=== PATIENT | female | born 1960 | race Caucasian/White ===

== ENCOUNTER 2018-04-30 11:24 | Emergency (ER) | payer MEDICAID ==
[~2018-04-30] VITALS: Ht 167.6 cm; Wt 93.9 kg
[2018-04-30 11:29] VITALS: BP_SYST 112
--- NOTE | 2018-04-30 11:38 | NUR ---
Patient triaged and placed in waiting room. VSS and patient appears in no acute distress at this time. Accompanied by daughter, awaiting available bed, and MD notified of need for MSE.
--- NOTE | 2018-04-30 13:52 | NUR ---
Patient to ER bed 06 to gown for evaluation. Side rails up. Report given to Tha LOYA.
--- NOTE | 2018-04-30 13:53 | NUR ---
ER FREDDY Roahc examining patient.
--- NOTE | 2018-04-30 13:55 | NUR ---
Patient is awake, alert, and oriented x4. She is complaining swollen feet for 3 months. She is complaining of pain 10/10.
[2018-04-30] MEDS ORDERED: HYDROcodone/ACETAMIN 7.5-325 MG TAB PO ONE (14:30)
--- NOTE | 2018-04-30 16:35 | NUR ---
Patient given written and verbal discharge instructions and verbalizes understanding. ER MD discussed with patient the results and treatment provided. Patient in stable condition. ID arm band removed. Rx of motrin, norco given. Patient educated on pain management and to follow up with PMD. Pain Scale 0/10. Opportunity for questions provided and answered. Medication side effect fact sheet provided.
[2018-04-30 16:44] VITALS: BP_SYST 110
== END 2018-04-30 16:35 | disposition home or self-care (01) ==
LOC: SED 11:24
DX: S92.812A Other fracture of left foot, initial encounter for closed fracture (principal); X50.0XXA Overexertion from strenuous movement or load, initial encounter; E11.9 Type 2 diabetes mellitus without complications; I10 Essential (primary) hypertension; Z86.79 Personal history of other diseases of the circulatory system; Y93.89 Activity, other specified; Y92.89 Other specified places as the place of occurrence of the external cause; Y99.8 Other external cause status
CPT/HCPCS: 36415; 84550-TC; 93971; 99284

== ENCOUNTER 2018-12-29 15:40 | Emergency (ER) | payer MEDICAID ==
[~2018-12-29] VITALS: Ht 160 cm; Wt 97.5 kg
[~2018-12-29 15:40] MED LIST: BENA20TA9 PO; CANA300T PO; CETI-101 PO; CHOL200075 PO; DOCU-144 PO; ESCI20TA PO; GABA-531 PO; IBUP-1969 PO; IBUP-1970 PO; LIP40 PO; METF1000 PO; PIOG30TA70 PO; TRAZ-219 PO; VIS25 PO
[2018-12-29 16:00] VITALS: BP_SYST 161
--- NOTE | 2018-12-29 16:05 | NUR ---
Patient to ER bed 04 to gown for evaluation. Side rails up.
--- NOTE | 2018-12-29 16:07 | NUR ---
Patient arrived in the ED accompanied by her daughter, c/o pain and swelling on both feet that started a month ago: Right more than left. Patient is a&o x4, respirations even and unlabored, denied any respiratory distress at this time. VS WNL, able to speak in full sentences. Denied any chest pain, shortness of breath or headaches at this time. Daughter at bedside. Instructed to notify ED if symptoms worsen while waiting to be seen by a provider. Patient verbalized understanding.
--- NOTE | 2018-12-29 16:50 | NUR ---
# 18 gauge angiocath placed to LAC. Use of asceptic technique. Opsite placed over site. Blood return noted. Blood for lab drawn from site. Flushed with 10 cc of normal saline. No evidence of infiltration noted. Patient tolerated well.
--- NOTE | 2018-12-29 17:13 | NUR ---
ER Dr. Duff at bedside examining patient.
[2018-12-29] MEDS ORDERED: KETOROLAC TROMETHAMINE 30 MG VIAL IVP ONE (17:30)
[2018-12-29 17:37] LABS: BASOPHILS # (AUTO) 0.1 K/uL (0.0-0.2); BASOPHILS % (AUTO) 0.6 % (0.0-2.0); EOSINOPHILS # (AUTO) 0.1 K/uL (0.0-0.4); EOSINOPHILS % (AUTO) 1.5 % (0.0-4.0); HEMATOCRIT 38.3 % (36-48); HEMOGLOBIN 12.9 g/dL (12.0-16.0); LYMPHOCYTES # (AUTO) 2.5 K/uL (1.0-5.5); LYMPHOCYTES % (AUTO) 27.3 % (20.5-51.5); MEAN CORPUSCULAR HEMOGLOBIN 29 pg (27-31); MEAN CORPUSCULAR HGB CONC 34 % (32-36); MEAN CORPUSCULAR VOLUME 85 fL (79.0-98.0); MONOCYTES # (AUTO) 0.5 K/uL (0.0-1.0); MONOCYTES % (AUTO) 5.1 % (1.7-9.3); NEUTROPHILS # (AUTO) 6.1 K/uL (1.8-7.7); NEUTROPHILS % (AUTO) 65.5 % (40.0-70.0); PLATELET COUNT (AUTO) 297 K/uL (130-430); RED BLOOD CELL COUNT(AUTO) 4.48 MIL/uL (4.2-6.2); RED CELL DISTRIBUTION WIDTH 14.2 % (9.0-15.0); WHITE BLOOD COUNT (AUTO) 9.3 K/uL (4.8-10.8)
[2018-12-29 17:47] LABS: CALCIUM 9.8 mg/dL (8.4-11.0); CREATININE 0.81 mg/dL (0.55-1.30); POTASSIUM 3.9 mmol/L (3.5-5.1)
[2018-12-29 17:53] LABS: ALBUMIN 3.9 g/dL (3.4-4.8); TOTAL BILIRUBIN 0.4 mg/dL (0.0-1.0)
--- NOTE | 2018-12-29 18:30 | NUR ---
Urine dip done, results documented and given to .
--- NOTE | 2018-12-29 18:45 | NUR ---
ER at bedside explaining results to patient and family verbalized understanding.
--- NOTE | 2018-12-29 18:55 | NUR ---
Patient given written and verbal discharge instructions and verbalizes understanding. ER MD discussed with patient the results and treatment provided. Patient in stable condition. ID arm band removed. IV catheter removed intact and dressing applied, no active bleeding. Rx of Keflex, Motrin, Buhler and Bactrim given. Patient educated on pain management and to follow up with PMD. Pain Scale 2/10 tolerable for patient . Opportunity for questions provided and answered. Medication side effect fact sheet provided.
[2018-12-29 19:03] VITALS: BP_SYST 141
== END 2018-12-29 19:03 | disposition home or self-care (01) ==
LOC: SED 15:40
DX: M79.671 Pain in right foot (principal); E11.9 Type 2 diabetes mellitus without complications; I10 Essential (primary) hypertension; Z79.899 Other long term (current) drug therapy; L03.115 Cellulitis of right lower limb; Z79.84 Long term (current) use of oral hypoglycemic drugs
CPT/HCPCS: 36415; 80053; 81002; 82962; 83880; 84484; 85025; 93971; 96374; 99284; J1885

== ENCOUNTER 2021-08-21 13:00 | Emergency (ER) | payer MEDICAID ==
[~2021-08-21] VITALS: Ht 165.1 cm; Wt 110.2 kg
[~2021-08-21 13:00] MED LIST changes: +BENA-6 PO; -BENA20TA9 PO; -CETI-101 PO; +CETI-80 PO; -TRAZ-219 PO; +TRAZ-251 PO
[2021-08-21 13:24] VITALS: BP_SYST 111
[2021-08-21] MEDS ORDERED: NAPR-1172 PO (15:28)
[2021-08-21 15:35] VITALS: BP_SYST 122
== END 2021-08-21 15:35 | disposition home or self-care (01) ==
LOC: SED 13:00
DX: S09.90XA Unspecified injury of head, initial encounter (principal); I10 Essential (primary) hypertension; E11.9 Type 2 diabetes mellitus without complications; Z79.899 Other long term (current) drug therapy; W18.39XA Other fall on same level, initial encounter; Y93.89 Activity, other specified; Y92.89 Other specified places as the place of occurrence of the external cause; Y99.8 Other external cause status
CPT/HCPCS: 70450-TC; 72125-TC; 76376; 99284

== ENCOUNTER 2022-02-08 16:53 | Emergency (ER) | payer MEDICAID ==
[~2022-02-08] VITALS: Ht 167.6 cm; Wt 99.8 kg
[2022-02-08 16:53] VITALS: BP_SYST 120
[~2022-02-08 16:53] MED LIST changes: +NAPR-1172 PO
--- NOTE | 2022-02-08 17:00 | NUR ---
Patient triaged and placed in waiting room. VSS and patient appears in no acute distress at this time. Accompanied by DAUGHTER, awaiting available bed, and MD notified of need for MSE.
--- NOTE | 2022-02-08 22:09 | NUR ---
CALLED PATIENT IN TRIAGE. NO RESPONSE.
== END 2022-02-08 22:09 | disposition left against medical advice (07) ==
LOC: SED 16:53
DX: Z00.00 Encounter for general adult medical examination without abnormal findings (principal); Z53.21 Procedure and treatment not carried out due to patient leaving prior to being seen by health care provider

== ENCOUNTER 2022-03-01 10:02 | Emergency (ER) | payer MEDICAID ==
[~2022-03-01] VITALS: Ht 165.1 cm; Wt 99.8 kg
--- NOTE | 2022-03-01 10:03 | NUR ---
DR ZAMORA IN TENT FOR EXAM
[2022-03-01 10:23] VITALS: BP_SYST 121
[2022-03-01] MEDS ORDERED: GUAI5SYR PO (11:20)
--- NOTE | 2022-03-01 12:18 | NUR ---
Patient given written and verbal discharge instructions and verbalizes understanding. ER MD discussed with patient the results and treatment provided. Patient in stable condition. ID arm band removed. Rx of ROBITUSSIN DM given. Patient educated on pain management and to follow up with PMD. Pain Scale . Opportunity for questions provided and answered. Medication side effect fact sheet provided.
== END 2022-03-01 12:18 | disposition home or self-care (01) ==
LOC: SED 10:02
DX: J06.9 Acute upper respiratory infection, unspecified (principal); R05.9 Cough, unspecified; R09.81 Nasal congestion; E11.9 Type 2 diabetes mellitus without complications; I11.0 Hypertensive heart disease with heart failure; I50.9 Heart failure, unspecified; Z79.899 Other long term (current) drug therapy; Z20.822 Contact with and (suspected) exposure to COVID-19
CPT/HCPCS: 36415; 99283